=== PATIENT | male | born 1955 | race Caucasian/White ===

== ENCOUNTER 2016-05-15 22:30 | Inpatient (IN) | payer OTHER ==
[~2016-05-15] VITALS: Ht 188 cm; Wt 108.9 kg
--- NOTE | ~2016-05-15 | EKG ---
[address] [employer] [place] [address] ELECTROCARDIOGRAM REPORT Name: MARIANELA CASTANEDA Shelby Room #: 306-P ADM IN M.R.#: [id number] Admission: 05/16/16 Attend Phys: Kofi Aden Discharge: Date of : 55 Report #: [id number] THIS REPORT FOR: //name// [facility] Test Date: 2016-05-16 Test Time: 14:58:54 Pat Name: MARIANELA CASTANEDA Department: Room: 306 P Gender: M Geriatric Nurse: Ayanna SMART : 1955 Requested By: Kofi Aden Order Number: [id number] MD: Carlo Bae Measurements Intervals [place] Rate: 117 P: 62 NH: 140 QRS: 49 QRSD: 105 T: 56 QT: 325 QTc: 454 Interpretive Statements Sinus tachycardia Abnormal R-wave progression, early transition No previous ECG available for comparison Electronically Signed On 05-17-2016 7:48:50 CDT by Carlo Bae [email or web address] <ELECTRONICALLY SIGNED> By: Carlo Bae MD, LOCATED WITHIN [facility] 05/17/16 0748 1458 1458 Carlo Bae MD, FACC /EPI
[2016-05-15 22:30] VITALS: BP 139/52
[~2016-05-15 22:30] MED LIST: ACETAMINOP160 MG/12; ACETAMINOP160 MG/51 PER TUBE; AFLURIA 2045 MCG/0.4; ATIVAN0.5 MG PER TUBE; BACTRIM DS TAB1 EACH PER TUBE; BACTRIM DS TAB1 EACH PO; BACTROBAN22 GM TP; BISACODYL SUPP10 MG RECTAL; CIPROFLOXACIN500 M1 PO; COMBIVENT INH; CYCLOBENZAPRINE10 MG PER TUBE; DIFLUCAN100 MG PER TUBE; DILANTIN100 MG PO; DOCUSATE PER TUBE; DOCUSATE SODIUM PER TUBE; DOXYCYCLINE 10100 MG PO; DUONEB 2.5-0.5 M3 ML INH; FENTANYL PA50 MCG/HR; GABAPENTIN PER TUBE; GABAPENTIN250 MG/5 M PER TUBE; GABPENTIN PER TUBE; HYDROCODON-ACE1 EAC7 PER TUBE; HYDROCODON-ACE1 EACH PER TUBE; HYDROCODONE-AP1 EAC6 PER TUBE; JEVITY1000 M1; JEVITY1000 M1 PER TUBE; LANSOPRAZOLE30 M1 PER TUBE; LORTAB 5 MG/5001 TA1 PER TUBE; MEROPENEM500 MG IV; METOCLOPRAM5 MG/5 ML PER TUBE; METOCLOPRAMIDE 55 M1 GT; NYSTATIN1 EA10; NYSTATIN1 EAC9 TOP; OMEPRAZOLE20 M2 PER TUBE; PHENYTOIN125 MG/52 PER TUBE; PNEUMOVAX25 MCG/0.5; POTASSIUM CHL PER TUBE; POTASSIUM CHLORIDE PER TUBE; POTASSIUM20 PER TUBE; PREVACID 15 MG15 M4 PER TUBE; PREVACID 30MG C30 M1 PER TUBE; PRILOSEC10 MG PER TUBE; PROBIOTIC1 EAC1 PO; REGLAN 5 MG TAB5 MG PER TUBE; SODIUM CHLORID100 M4 IV; SULFAMETHOXAZO1 EAC1 PER TUBE; SULFAMETHOXAZOLE PER TUBE; TRIMETHOPRIM PER TUBE; TYLENOL SUPP RECTAL; ZANTAC 150MG T150 MG PO
[2016-05-15 23:51] LABS: URINE BILIRUBIN NEGATIVE (Negative); URINE BLOOD 3+ (Negative); URINE COLOR YELLOW; URINE GLUCOSE-RANDOM* NEGATIVE (Negative); URINE KETONES NEGATIVE (Negative); URINE LEUKOCYTES-REFLEX 3+ (Negative); URINE SPECIFIC GRAVITY <= 1.005 (1.003-1.035)
[2016-05-16 00:11] LABS: CASTS None Seen /LPF (None Seen); SQUAMOUS None Seen /LPF (0-3)
[2016-05-16 00:12] LABS: URINE WBC-REFLEX 6-15 Few /HPF (0-5)
[2016-05-16 00:13] LABS: CRYSTALS None Seen /LPF (None Seen)
[2016-05-16 00:14] LABS: AMORPHOUS PHOSPHATES Many /LPF (None Seen)
[2016-05-16 00:21] LABS: SSA (PROTEIN CONFIRMATORY) 4+ (APPROX. >= 500) mg/dL (Negative)
[2016-05-16 00:27] LABS: URINE PROTEIN (DIPSTICK) 4+ (Negative)
[2016-05-16 01:21] LABS: ABSOLUTE NEUTROPHILS 10.5 thou/uL (1.4-8.2); BASOPHILS 0.2 % (0.0-2.0); EOSINOPHILS 1.1 % (0.0-3.0); HEMATOCRIT 42.9 % (42.0-52.0); HEMOGLOBIN 14.4 gm/dL (14.0-18.0); LYMPHOCYTES 10.7 % (24.0-44.0); MCH 27.8 pg (26.0-34.0); MCHC 33.5 g/dL (28.0-37.0); MCV 83.1 fL (80.0-100.0); MONOCYTES 6.1 % (1.0-8.0); PLATELET COUNT 195 thou/uL (150-400); POLYS 81.9 % (36.0-66.0); RBC 5.16 mil/uL (4.50-6.00); RDW 15.9 % (10.5-14.5); WBC 12.8 thou/uL (4.0-11.0)
[2016-05-16 01:29] LABS: MANUAL DIFF NO
[2016-05-16 01:32] LABS: CALCIUM 9.5 mg/dL (8.5-10.1); CREATININE 1.3 mg/dL (0.6-1.3); POTASSIUM 4.2 mmol/L (3.5-5.1)
[2016-05-16 03:20] VITALS: BP 99/58
[2016-05-16 04:15] VITALS: BP 99/83
[2016-05-16 08:15] VITALS: BP 127/101
[2016-05-16 15:05] VITALS: BP 138/106
[2016-05-16 22:10] VITALS: BP 139/122
[2016-05-17 04:00] VITALS: BP 124/105
[2016-05-17 06:06] LABS: ABSOLUTE NEUTROPHILS 5.1 thou/uL (1.4-8.2); BASOPHILS 0.3 % (0.0-2.0); EOSINOPHILS 2.1 % (0.0-3.0); HEMATOCRIT 35.5 % (42.0-52.0); LYMPHOCYTES 21.5 % (24.0-44.0); MCH 28.1 pg (26.0-34.0); MCHC 32.2 g/dL (28.0-37.0); MCV 87.2 fL (80.0-100.0); MONOCYTES 11.3 % (1.0-8.0); PLATELET COUNT 135 thou/uL (150-400); POLYS 64.8 % (36.0-66.0); RBC 4.07 mil/uL (4.50-6.00); RDW 16.2 % (10.5-14.5); WBC 7.9 thou/uL (4.0-11.0)
[2016-05-17 06:08] LABS: HEMOGLOBIN 11.4 gm/dL (14.0-18.0); MANUAL DIFF NO
[2016-05-17 06:36] LABS: ALBUMIN 2.9 g/dL (3.4-5.0); CALCIUM 8.7 mg/dL (8.5-10.1); CREATININE 1.1 mg/dL (0.6-1.3); MAGNESIUM 1.9 mg/dL (1.8-2.4); POTASSIUM 4.9 mmol/L (3.5-5.1); TOTAL BILIRUBIN 0.7 mg/dL (<0.1-1.0); TOTAL PROTEIN 6.3 g/dL (6.4-8.2)
[2016-05-17] MEDS ORDERED: LEVAQUIN 500 M500 M2 PER TUBE (09:40)
[2016-05-17] MEDS ORDERED: ZYPREXA 5 MG TAB5 M1 PER TUBE (09:41)
[2016-05-17 12:25] VITALS: BP 121/52
[2016-05-18] MEDS ORDERED: ATIVAN1 MG PO (15:17)
[2016-05-18] MEDS ORDERED: NEURONTIN250 MG/5 M PER TUBE (15:19)
[2016-05-18] MEDS ORDERED: KEPPRA 500 MG500 M1 PER TUBE (15:20)
[2016-05-18] MEDS ORDERED: OLANZAPINE5 MG PER TUBE (15:21)
== END 2016-05-17 14:31 | DRG 393 ==
LOC: ER 22:30 → 3N 05-16 02:44 → EROBS 05-16 02:44 → 3N 05-16 03:20
PROVIDERS: Emergency Medicine; Nurse Practitioner
PROC: 0D20XUZ Change Feeding Device in Upper Intestinal Tract, External Approach (ICD-10-PCS; principal; 2016-05-16)
DX: K94.23 Gastrostomy malfunction (principal); G82.50 Quadriplegia, unspecified; G93.40 Encephalopathy, unspecified; A41.9 Sepsis, unspecified organism; N39.0 Urinary tract infection, site not specified; K21.9 Gastro-esophageal reflux disease without esophagitis; G40.909 Epilepsy, unspecified, not intractable, without status epilepticus; R45.1 Restlessness and agitation; Z87.01 Personal history of pneumonia (recurrent); Z90.49 Acquired absence of other specified parts of digestive tract; Z88.0 Allergy status to penicillin; Z88.1 Allergy status to other antibiotic agents; Z87.442 Personal history of urinary calculi; Z88.6 Allergy status to analgesic agent; Z91.041 Radiographic dye allergy status
CPT/HCPCS: 10096

== ENCOUNTER 2016-05-18 14:27 | Inpatient (IN) | payer OTHER ==
[~2016-05-18] VITALS: Ht 188 cm; Wt 85.9 kg
--- NOTE | ~2016-05-18 | HC ---
[facility] [place] [address] CONSULTATION Name: MARIANELA CASTANEDA Shelby Room #: 434-P ADM IN M.R.#: [id number] Admission: 05/18/16 Attend Phys: Grover Lopes MD Discharge: Date of : 55 Report #: [id number] THIS REPORT FOR: //name// CC: Grover Lopes MD Patient , Yair Read MD DATE OF SERVICE: 05/18/2016 Patient of Yair Read M.D. and Grover Lopes M.D. CHIEF COMPLAINT AND HISTORY OF PRESENT ILLNESS: This is a very pleasant 60-year-old white male, who is well-known to me from previous evaluation at [facility] in the past. He presents from [facility] where he resides with a history of coffee-ground emesis . The patient apparently pulled out his PEG tube on 05/15 and came to the Emergency Room at [facility] to have replaced. It was successfully replaced and he returned back to [facility]. At this time, he has had 2 episodes coffee-ground emesis. There is no melena or hematochezia. His hemoglobin at this time is 12.6. He is being admitted for observation, because of the coffee-ground emesis. PAST MEDICAL HISTORY: Significant for antral ulcers in 03/2014. He also is quadriplegic. He is aphasic. He has history of seizures, history of peptic ulcer disease as above, esophagitis, encephalopathy, anemia, aspiration pneumonia, and neurogenic bladder. He has a staghorn calculus. PAST SURGICAL HISTORY: Significant for PEG tube placement, suprapubic catheter placement and cholecystectomy. ALLERGIES: PENICILLIN, IODINE, CODEINE, VANCOMYCIN and CEPHALOSPORINS. CURRENT MEDICATIONS: Include acetaminophen, Neurontin, hydrocodone, Keppra, levofloxacin, lorazepam, Zyprexa, docusate, gabapentin liquid. SOCIAL HISTORY: Does not smoke, does not drink alcohol. Resides at [facility]. FAMILY HISTORY AND REVIEW OF SYSTEMS: Cannot be obtained from the patient, as he is nonverbal and I do not think, he really understands everything that I am asking him. He does not seem to respond appropriately to questions. PHYSICAL EXAMINATION: GENERAL: Reveals a well-developed, well-nourished 60-year-old white male, who [address] [address] CONSULTATION Name: MARIANELA CASTANEDA Room #: 434-P [facility] IN [facility]#: [id number] Admission: 05/18/16 Attend Phys: Grover Lopes MD Discharge: Date of : 55 Report #: [id number] does not appear to be in any acute distress at the time of my examination. He is awake, he appears alert, but I am not sure if he is oriented or if he is capable of comprehending my conversation with him. VITAL SIGNS: Blood pressure 119/64, temperature 99.1, pulse 86, respirations are 12. HEENT: He is normocephalic and atraumatic and anicteric. HEART: Rate and rhythm are regular with a normal S1 and S2. LUNGS: Clear bilaterally. ABDOMEN: Soft. Bowel sounds are present in all 4 quadrants. There is no palpable organomegaly or mass. There is no tenderness, rebound or guarding. He does have a PEG in his left upper quadrant and it appears to be dry. There is some mild erythema around the bumper. EXTREMITIES: Warm and dry. I did not test him extensively, because he cannot follow instructions for neurological testing, but he appears to be grossly intact without any lateralizing signs for the most part. He seems to be able to move both of his upper extremities. SIGNIFICANT LABORATORY DATA: His BMP shows a chloride of 110, which is high and BUN of 25. His glucose is 122. Liver enzymes are normal except for the alkaline phosphatase, which is slightly elevated at 128, bilirubin is normal, albumin is 2.7. INR is 1.0. CBC showed a white count 10.9, hemoglobin 12.6, hematocrit 38.3, MCV, MCH, MCHC are all normal. RDW 15.7, platelet count 149,000. His MRSA is positive. Urinalysis shows 4+ protein. Urobilinogen 2.0 and 3+ leukocytes, but his nitrites are negative. IMPRESSION: 1. Coffee-ground emesis. PEG tube replaced a few days ago. The patient was transferred here from [facility] for coffee-ground emesis and does not remember vomiting any coffee-ground, although I am not certain, he is a very good historian. He denied seeing any brown-colored emesis. He has been admitted several times in the past with coffee-ground emesis and he has had history of gastric ulcer in 03/2014. 2. History of seizures. 3. Quadriplegic. 4. Aphasic. 5. Neurogenic bladder. 6. History of esophagitis. 7. Encephalopathic. 8. History of anemia. 9. History of staghorn calculus. RECOMMENDATIONS: My recommendations are to start him on proton pump inhibitors, as you have done. We will keep him n.p.o. for now. Monitor his H and H every 8 hours x3. I do not have any particular plans to proceed with endoscopy unless hemoglobin [facility] [address] [place] [address] CONSULTATION Name: MARIANELA CASTANEDA Room #: 434-P ADM IN M.R.#: [id number] Admission: 05/18/16 Attend Phys: Grover Lopes MD Discharge: Date of : 55 Report #: [id number] dropped precipitously with obvious GI blood loss. Thank you very much once again for allowing me to participate in his care. <ELECTRONICALLY SIGNED> By: Sandra Bahena DO 05/19/16 0959 2326 0556 Sandra Bahena DO /nt
--- NOTE | ~2016-05-18 | EKG ---
[address] [address] ELECTROCARDIOGRAM REPORT Name: MARIANELA CASTANEDA Shelby Room #: 434-P ADM IN M.R.#: [id number] Admission: 05/18/16 Attend Phys: Grover Lopes MD Discharge: Date of : 55 Report #: [id number] THIS REPORT FOR: //name// 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 : 1955 Requested By: Luis Alfredo Joya Order Number: [id number] MD: Carlo Bae Measurements Intervals [place] Rate: 78 P: 81 SC: 139 QRS: 47 QRSD: 79 T: 58 QT: 363 QTc: 414 Interpretive Statements Sinus rhythm Abnormal R-wave progression, early transition Compared to ECG 05/16/2016 14:58:54 Sinus tachycardia no longer present Electronically Signed On 05-19-2016 7:23:22 CDT by Carlo Bae [email or web address] <ELECTRONICALLY SIGNED> By: Carlo Bae MD, [facility] 05/19/16 07 49 49 Carlo Bae MD, [facility] /EPI
--- NOTE | ~2016-05-18 | HC ---
[facility] [place] [address] CONSULTATION Name: MARIANELA CASTANEDA Shebly Room #: 434-P [facility] IN .R.#: [id number] Admission: 05/18/16 Attend Phys: Grover Lopes MD Discharge: 05/20/16 Date of : 55 Report #: [id number] THIS REPORT FOR: //name// CC: [facility] REASON FOR CONSULTATION: I was asked to evaluate the patient concerning ____ cystitis and multiple drug allergies. HISTORY OF PRESENT ILLNESS: The patient was a 60-year-old assisted resident, who had recently undergone a PEG tube placement for nutritional support. Since that he has had several episodes of coffee ground emesis. He has been in and out of the hospital over last 2 weeks. Dismissed on 05/20 only to return on 05/21 with similar symptoms. The patient is unable to give any details of his history. Past history notes antral ulcers diagnosed in 2015. He is quadriplegic and aphasic with a history of seizures, aspiration pneumonia, neurogenic bladder with history of staghorn calculus and suprapubic catheter. On presentation, he has been afebrile. His white count initially was 17,000 down to 10,000. His hemoglobin initially 14 down to 12.4 today, which is more in line with how he has been over the last week. There has been no fever, chills or sweats. No cough or sputum production. No diarrhea. Again, patient is unable to communicate. ALLERGIES: Multiple including PENICILLIN, CEPHALOSPORINS. He has VANCOMYCIN. Also allergic to IODINE AND CODEINE. MEDICATIONS: As noted on his MAR which were reviewed. He did receive a dose of Zyvox and aztreonam in the Emergency Room. PAST MEDICAL HISTORY, FAMILY HISTORY, AND SOCIAL HISTORY: Unchanged from his history and physical, which was reviewed in detail. REVIEW OF SYSTEMS: The patient unable to give any details. Now does have a right upper extremity midline catheter. Skin without decubiti. Respiratory status remained stable. No change in his mental status by report. PHYSICAL EXAMINATION: VITAL SIGNS: Afebrile, hemodynamically stable. He just had an echocardiogram, which showed no evidence of vegetation on his heart valves. HEENT: Unremarkable. NECK: Supple. LUNGS: Clear. HEART: Regular, without murmur. ABDOMEN: Soft, nontender, no hepatosplenomegaly or mass. His PICC site was unremarkable. Suprapubic catheter was unremarkable. SKIN: Had no rashes or decubiti. [address] [address] CONSULTATION Name: MARIANELA CASTANEDA Room #: 434-P [facility] IN ..#: [id number] Admission: 05/18/16 Attend Phys: Grover Lopes MD Discharge: 05/20/16 Date of : 55 Report #: [id number] LABORATORY STUDIES: Chest x-ray showed elevated hemidiaphragm with basilar atelectasis. X-ray of his abdomen showed nonspecific changes. Sodium 142, potassium 3.5, bicarbonate 22, creatinine 1.2, hemoglobin 12.4, white count 10.3, platelet count 177,000. Urinalysis, many wbc's, moderate rbc's, few bacteria. Urine sample was from 05/22. It is noted that urinalysis on 05/15 showed few wbc's, moderate rbc's and many bacteria. Urine culture from 05/15 showed MRSA and Proteus, which he has had in the past. 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 This organism was sensitive to Unasyn, aztreonam, ceftriaxone, Zosyn. MRSA was sensitive to vancomycin, tetracycline, rifampin, gentamicin, daptomycin, Zyvox. IMPRESSION: I suspected the main cause of presentation was due to the hematemesis. The urinary tract with an indwelling suprapubic catheter still is most likely colonized with these organisms. I do not get the sense that we are dealing with uncontrolled infection at this time. The last CT scan of his abdomen and pelvis did show nonobstructing nephrolithiasis and some calcifications within the right bladder wall. This was from 2014. Recommend observation off antibiotics. I will see how he does in the next 24-48 hours. <ELECTRONICALLY SIGNED> By: Barber Porter MD 05/23/16 1654 1221 [id number] Barber Porter MD /nt
[~2016-05-18 14:27] MED LIST changes: +LEVAQUIN 500 M500 M2 PER TUBE; +ZYPREXA 5 MG TAB5 M1 PER TUBE
[2016-05-18 14:28] VITALS: BP 119/64
[2016-05-18 14:51] LABS: HEMATOCRIT 38.3 % (42.0-52.0); HEMOGLOBIN 12.6 gm/dL (14.0-18.0); MCHC 32.9 g/dL (28.0-37.0); MCV 85.2 fL (80.0-100.0); PLATELET COUNT 149 thou/uL (150-400); RBC 4.49 mil/uL (4.50-6.00); RDW 15.7 % (10.5-14.5); WBC 10.9 thou/uL (4.0-11.0)
[2016-05-18 14:54] LABS: MANUAL DIFF YES
[2016-05-18 14:59] LABS: CALCIUM 8.8 mg/dL (8.5-10.1); POTASSIUM 4.2 mmol/L (3.5-5.1)
[2016-05-18 15:04] LABS: ALBUMIN 2.7 g/dL (3.4-5.0); TOTAL BILIRUBIN 0.5 mg/dL (<0.1-1.0); TOTAL PROTEIN 6.6 g/dL (6.4-8.2)
[2016-05-18 15:05] LABS: APTT 18.8 Seconds (24.5-32.8); PROTIME 10.7 Seconds (9.3-11.4)
[2016-05-18 15:11] LABS: ABSOLUTE NEUTROPHILS 9.6 thou/uL (1.4-8.2); PLATELET ESTIMATE NORMAL; TOTAL CELL COUNT 100
[2016-05-18] MEDS ORDERED: ATIVAN1 MG PO (15:17)
[2016-05-18] MEDS ORDERED: NEURONTIN250 MG/5 M PER TUBE (15:19)
[2016-05-18] MEDS ORDERED: KEPPRA 500 MG500 M1 PER TUBE (15:20)
[2016-05-18] MEDS ORDERED: OLANZAPINE5 MG PER TUBE (15:21)
[2016-05-18 16:55] VITALS: BP 108/60
[2016-05-18 17:00] VITALS: BP 128/74
[2016-05-18 19:30] VITALS: BP 108/64
[2016-05-18 20:03] LABS: HEMATOCRIT 37.1 % (42.0-52.0)
[2016-05-19] VITALS: BP 124/59
[2016-05-19 03:30] VITALS: BP 125/63
[2016-05-19 06:06] LABS: ALBUMIN 2.9 g/dL (3.4-5.0); CALCIUM 8.8 mg/dL (8.5-10.1); MAGNESIUM 1.8 mg/dL (1.8-2.4); TOTAL BILIRUBIN 1.1 mg/dL (<0.1-1.0); TOTAL PROTEIN 6.3 g/dL (6.4-8.2)
[2016-05-19 08:18] VITALS: BP 104/70
[2016-05-19 11:37] VITALS: BP 111/56
[2016-05-19 15:19] LABS: HEMATOCRIT 37.8 % (42.0-52.0); HEMOGLOBIN 12.4 gm/dL (14.0-18.0); MCHC 32.7 g/dL (28.0-37.0); MCV 85.5 fL (80.0-100.0); RBC 4.42 mil/uL (4.50-6.00); RDW 15.9 % (10.5-14.5); WBC 6.3 thou/uL (4.0-11.0)
[2016-05-19 16:38] VITALS: BP 137/80
[2016-05-19 19:21] VITALS: BP 117/84
[2016-05-20 05:10] VITALS: BP 105/61
[2016-05-20 05:36] LABS: ABSOLUTE NEUTROPHILS 4.9 thou/uL (1.4-8.2); BASOPHILS 0.3 % (0.0-2.0); EOSINOPHILS 2.7 % (0.0-3.0); HEMATOCRIT 38.6 % (42.0-52.0); HEMOGLOBIN 12.6 gm/dL (14.0-18.0); LYMPHOCYTES 24.9 % (24.0-44.0); MCHC 32.7 g/dL (28.0-37.0); MCV 85.7 fL (80.0-100.0); MONOCYTES 6.3 % (1.0-8.0); PLATELET COUNT 168 thou/uL (150-400); POLYS 65.8 % (36.0-66.0); WBC 7.5 thou/uL (4.0-11.0)
[2016-05-20 05:43] LABS: MANUAL DIFF NO
[2016-05-20 07:15] VITALS: BP 95/57
[2016-05-20 11:15] VITALS: BP 116/53
[2016-05-20] MEDS ORDERED: PROTONIX40 M4 PO (14:44)
== END 2016-05-20 18:19 | DRG 377 ==
LOC: ER 14:27 → EROBS 15:00 → 4S 15:00 → EROBS 16:55 → 4S 17:01
PROVIDERS: Emergency Medicine; Internal Medicine Endocrinology, Diabetes & Metabolism; Internal Medicine Gastroenterology; Nurse Practitioner
DX: K92.2 Gastrointestinal hemorrhage, unspecified (principal); G82.50 Quadriplegia, unspecified; G93.40 Encephalopathy, unspecified; G61.0 Guillain-Barre syndrome; E44.0 Moderate protein-calorie malnutrition; R11.10 Vomiting, unspecified; Z96.0 Presence of urogenital implants; N31.9 Neuromuscular dysfunction of bladder, unspecified; D50.9 Iron deficiency anemia, unspecified; G40.909 Epilepsy, unspecified, not intractable, without status epilepticus; Z66 Do not resuscitate; R45.1 Restlessness and agitation; Z68.24 Body mass index [BMI] 24.0-24.9, adult; Z87.442 Personal history of urinary calculi; Z87.01 Personal history of pneumonia (recurrent); Z90.49 Acquired absence of other specified parts of digestive tract; Z88.0 Allergy status to penicillin; Z88.7 Allergy status to serum and vaccine; Z88.1 Allergy status to other antibiotic agents; Z88.6 Allergy status to analgesic agent; Z91.041 Radiographic dye allergy status; Z87.11 Personal history of peptic ulcer disease; Z93.1 Gastrostomy status
CPT/HCPCS: 10100

== ENCOUNTER 2016-05-21 13:08 | Inpatient (IN) | payer OTHER ==
[~2016-05-21] VITALS: Ht 175.3 cm; Wt 90.7 kg
--- NOTE | ~2016-05-21 | 2DMMODE ---
[facility] [place] [address] 2 D/M-MODE ECHOCARDIOGRAM Name: MARIANELA CASTANEDA Shelby Room #: 430-P [facility] IN [facility]#: [id number] Admission: 05/21/16 Attend Phys: Elkin Navas, Discharge: Date of : 55 Date of Service: 05/22/16 1120 Report #: [id number] THIS REPORT FOR: //name// APPROVED REPORT EXAM: Comprehensive 2D, Doppler, and color-flow Echocardiogram Patient Location: Bedside Blood Pressure: 132/70 mmHg HR: 90 bpm Other Information Study Quality: Fair Technically limited study due to body habitus. Indications Sepsis, R^O endocarditis. 2D Dimensions LVOT Diam: 21.28 (18-24mm) Aortic Valve AoV Peak Jere.: 1.04 m/s AO Peak Gr.: 4.35 mmHg LV Max P.90 mmHg LV Max: 0.99 m/s Mitral Valve MV PHT: 105.69 ms MV E Max Jere.: 0.58 m/s E/A Ratio: 0.7 MV A Jere.: 0.87 m/s MV Decel. Time: 364.45 ms Pulmonary Valve PV Peak Jere.: 0.94 m/s PV Peak Gr.: 3.53 mmHg Left Ventricle The left ventricle is normal size. There is normal LV segmental wall motion. There is normal left ventricular wall thickness. The left ventricular systolic function is grossly normal. LVEF is 60-65%. Grade I - abnormal relaxation pattern. Right Ventricle The right ventricle is normal size. The right ventricular systolic [facility] [address] [place] [address] 2 D/M-MODE ECHOCARDIOGRAM Name: MARIANELA CASTANEDA Room #: 430-P [facility] IN [facility]#: [id number] Admission: 05/21/16 Attend Phys: Elkin Navas, Discharge: Date of : 55 Date of Service: 05/22/16 1120 Report #: [id number] function is normal. Atria The left atrium size is normal. The right atrium size is normal. Aortic Valve The aortic valve is normal in structure. No aortic regurgitation is present. There is no aortic valvular stenosis. Mitral Valve The mitral valve is normal in structure. There is no mitral valve regurgitation noted. Tricuspid Valve The tricuspid valve is normal in structure. There is no tricuspid valve regurgitation noted. Pulmonic Valve The pulmonary valve is normal in structure. There is no pulmonic valvular regurgitation. Great Vessels The aortic root is normal in size. IVC is not well visualized. Pericardium There is no pericardial effusion. <Conclusion> Technically difficult study. The left ventricle is normal size. The left ventricular systolic function is grossly normal. The right ventricle is normal size. The left atrium size is normal. There is no aortic valvular stenosis. There is no mitral valve regurgitation noted. There is no pericardial effusion. <ELECTRONICALLY SIGNED> By: Oracio Johnson MD 05/22/16 1120 19 19 Oracio Johnson MD /INF
--- NOTE | ~2016-05-21 | EKG ---
[address] [address] ELECTROCARDIOGRAM REPORT Name: CASTANEDAMARIANELA Room #: 430-P ADM IN M.R.#: [id number] Admission: 05/21/16 Attend Phys: Elkin Navas MD Discharge: Date of : 55 Report #: [id number] THIS REPORT FOR: //name// [facility] Test Date: 2016-05-22 Test Time: 03:52:21 Pat Name: MARIANELA CASTANEDA Department: Room: 430 P Gender: M Typing Office Worker: LION : 1955 Requested By: Desi Jonas Order Number: [id number] MD: Ger Stanley Measurements Intervals [place] Rate: 109 P: 75 [place]: 141 QRS: 37 QRSD: 77 T: 54 QT: 325 QTc: 438 Interpretive Statements Sinus tachycardia Atrial premature complex Abnormal R-wave progression, early transition Baseline wander in lead(s) I,II,aVR Compared to ECG 05/18/2016 14:50:14 Atrial premature complex(es) now present Sinus rhythm no longer present Electronically Signed On 05-26-2016 12:26:11 CDT by Ger Stanley [email or web address] <ELECTRONICALLY SIGNED> By: Ger Stanley MD 05/26/16 1226 1 1 Ger Stanley MD /EPI
[~2016-05-21 13:08] MED LIST changes: +ATIVAN1 MG PO; +KEPPRA 500 MG500 M1 PER TUBE; +NEURONTIN250 MG/5 M PER TUBE; +OLANZAPINE5 MG PER TUBE; +PROTONIX40 M4 PO
[2016-05-21 13:09] VITALS: BP 150/83
[2016-05-21 13:54] LABS: HEMATOCRIT 42.2 % (42.0-52.0); MANUAL DIFF YES; MCHC 33.1 g/dL (28.0-37.0); MCV 84.8 fL (80.0-100.0); PLATELET COUNT 195 thou/uL (150-400); RBC 4.98 mil/uL (4.50-6.00); WBC 17.8 thou/uL (4.0-11.0)
[2016-05-21 14:06] LABS: CALCIUM 9.3 mg/dL (8.5-10.1); POTASSIUM 3.6 mmol/L (3.5-5.1)
[2016-05-21 14:07] LABS: ALBUMIN 3.3 g/dL (3.4-5.0); DIRECT BILIRUBIN 0.3 mg/dL (<0.1-0.3); TOTAL PROTEIN 7.8 g/dL (6.4-8.2)
[2016-05-21 14:37] LABS: ABSOLUTE NEUTROPHILS 16.6 thou/uL (1.4-8.2); ANISOCYTOSIS 1+; TOTAL CELL COUNT 100
[2016-05-21 20:00] VITALS: BP 125/71
[2016-05-22 01:35] VITALS: BP 108/70
[2016-05-22 04:00] VITALS: BP 92/60
[2016-05-22 04:34] LABS: HEMATOCRIT 37.4 % (42.0-52.0); HEMOGLOBIN 12.4 gm/dL (14.0-18.0); MCH 28.1 pg (26.0-34.0); MCHC 33.2 g/dL (28.0-37.0); MCV 84.8 fL (80.0-100.0); RBC 4.41 mil/uL (4.50-6.00); RDW 16.2 % (10.5-14.5); WBC 10.3 thou/uL (4.0-11.0)
[2016-05-22 04:46] LABS: CREATININE 1.2 mg/dL (0.6-1.3); POTASSIUM 3.5 mmol/L (3.5-5.1)
[2016-05-22 08:19] LABS: URINE BILIRUBIN NEGATIVE (Negative); URINE BLOOD 3+ (Negative); URINE COLOR YELLOW; URINE GLUCOSE-RANDOM* NEGATIVE (Negative); URINE KETONES NEGATIVE (Negative); URINE NITRITE NEGATIVE (Negative); URINE PROTEIN (DIPSTICK) 2+ (Negative); URINE SPECIFIC GRAVITY 1.015 (1.003-1.035)
[2016-05-22 08:52] LABS: BACTERIA 1-9 Few /HPF (None Seen); CASTS None Seen /LPF (None Seen); CRYSTALS None Seen /LPF (None Seen); SQUAMOUS 0-3 Few /LPF (0-3); URINE WBC >25 Many /HPF (0-5); WBC CLUMPS Packed (None Seen)
[2016-05-22 09:48] VITALS: BP 132/70
[2016-05-22 16:55] VITALS: BP 140/72
[2016-05-22 20:09] VITALS: BP 136/71
[2016-05-23 04:00] VITALS: BP 106/56
[2016-05-23 05:49] LABS: MCH 27.9 pg (26.0-34.0); MCHC 32.5 g/dL (28.0-37.0); MCV 85.9 fL (80.0-100.0); RBC 4.3 mil/uL (4.50-6.00); RDW 15.9 % (10.5-14.5); WBC 5.3 thou/uL (4.0-11.0)
[2016-05-23 06:04] LABS: CALCIUM 8.5 mg/dL (8.5-10.1); CREATININE 1.1 mg/dL (0.6-1.3); POTASSIUM 3.4 mmol/L (3.5-5.1)
[2016-05-23 08:19] VITALS: BP 132/78
[2016-05-23 11:30] VITALS: BP 120/76
[2016-05-23 15:00] VITALS: BP 120/72
[2016-05-23 21:00] VITALS: BP 109/68
[2016-05-24 04:30] VITALS: BP 104/72
[2016-05-24 07:49] LABS: BASOPHILS 0.4 % (0.0-2.0); EOSINOPHILS 3.5 % (0.0-3.0); HEMATOCRIT 34.2 % (42.0-52.0); HEMOGLOBIN 11.3 gm/dL (14.0-18.0); LYMPHOCYTES 31.3 % (24.0-44.0); MCH 28.4 pg (26.0-34.0); MCHC 33.1 g/dL (28.0-37.0); MONOCYTES 7.2 % (1.0-8.0); PLATELET COUNT 160 thou/uL (150-400); POLYS 57.6 % (36.0-66.0); RBC 3.98 mil/uL (4.50-6.00); WBC 5.2 thou/uL (4.0-11.0)
[2016-05-24 07:52] VITALS: BP 94/61
[2016-05-24 07:55] LABS: CALCIUM 8.8 mg/dL (8.5-10.1); POTASSIUM 3.7 mmol/L (3.5-5.1)
[2016-05-24 07:56] LABS: MANUAL DIFF NO
[2016-05-24 16:44] VITALS: BP 111/71
[2016-05-24 20:00] VITALS: BP 116/71
[2016-05-25 04:38] VITALS: BP 129/79
[2016-05-25 05:33] LABS: HEMATOCRIT 38.5 % (42.0-52.0); HEMOGLOBIN 12.4 gm/dL (14.0-18.0); MCH 27.5 pg (26.0-34.0); MCHC 32.3 g/dL (28.0-37.0); MCV 85.2 fL (80.0-100.0); RBC 4.52 mil/uL (4.50-6.00); RDW 16.3 % (10.5-14.5); WBC 6.7 thou/uL (4.0-11.0)
[2016-05-25 05:42] LABS: CREATININE 0.9 mg/dL (0.6-1.3); POTASSIUM 4.1 mmol/L (3.5-5.1)
[2016-05-25 14:47] VITALS: BP 100/67
[2016-05-25 20:00] VITALS: BP 128/59
[2016-05-26 04:07] VITALS: BP 116/62
[2016-05-26 06:25] LABS: HEMATOCRIT 35.7 % (42.0-52.0); HEMOGLOBIN 11.7 gm/dL (14.0-18.0); MCH 27.9 pg (26.0-34.0); MCHC 32.9 g/dL (28.0-37.0); MCV 84.9 fL (80.0-100.0); RBC 4.2 mil/uL (4.50-6.00); WBC 6.9 thou/uL (4.0-11.0)
[2016-05-26 07:30] VITALS: BP 151/107
[2016-05-26 08:46] LABS: CALCIUM 8.9 mg/dL (8.5-10.1); CREATININE 0.9 mg/dL (0.6-1.3); POTASSIUM 4.2 mmol/L (3.5-5.1)
[2016-05-26 12:19] VITALS: BP 102/55
[2016-05-26 14:37] VITALS: BP 120/71
== END 2016-05-26 19:09 | DRG 871 ==
LOC: ER 13:08 → 4E 15:22 → EROBS 15:22 → 4E 16:44
PROVIDERS: Emergency Medicine; Family Medicine; Internal Medicine
PROC: 02HV33Z Insertion of Infusion Device into Superior Vena Cava, Percutaneous Approach (ICD-10-PCS; principal; 2016-05-22)
PROC: B548ZZA Ultrasonography of Superior Vena Cava, Guidance (ICD-10-PCS; principal; 2016-05-22)
DX: A41.9 Sepsis, unspecified organism (principal); G93.40 Encephalopathy, unspecified; N39.0 Urinary tract infection, site not specified; G40.909 Epilepsy, unspecified, not intractable, without status epilepticus; I10 Essential (primary) hypertension; B95.62 Methicillin resistant Staphylococcus aureus infection as the cause of diseases classified elsewhere; D50.9 Iron deficiency anemia, unspecified; B96.4 Proteus (mirabilis) (morganii) as the cause of diseases classified elsewhere; N31.9 Neuromuscular dysfunction of bladder, unspecified; Z87.442 Personal history of urinary calculi; Z90.49 Acquired absence of other specified parts of digestive tract; Z88.0 Allergy status to penicillin; Z88.7 Allergy status to serum and vaccine; Z88.6 Allergy status to analgesic agent; Z88.1 Allergy status to other antibiotic agents; Z91.041 Radiographic dye allergy status; Z87.01 Personal history of pneumonia (recurrent)
CPT/HCPCS: 10084; 27001; 50454

== ENCOUNTER 2016-12-05 12:05 | Emergency (ER) | payer OTHER ==
[~2016-12-05] VITALS: Ht 182.9 cm; Wt 81.7 kg
[2016-12-05 13:12] LABS: ABSOLUTE NEUTROPHILS 5.7 thou/uL (1.4-8.2); BASOPHILS 0.2 % (0.0-2.0); EOSINOPHILS 2.8 % (0.0-3.0); HEMOGLOBIN 14.4 gm/dL (14.0-18.0); MCH 27.6 pg (26.0-34.0); MCHC 33.4 g/dL (28.0-37.0); MCV 82.6 fL (80.0-100.0); MONOCYTES 7.6 % (1.0-8.0); PLATELET COUNT 230 thou/uL (150-400); POLYS 68.4 % (36.0-66.0); RBC 5.21 mil/uL (4.50-6.00); RDW 15.9 % (10.5-14.5); WBC 8.3 thou/uL (4.0-11.0)
[2016-12-05 13:13] LABS: MANUAL DIFF NO
[2016-12-05 13:21] LABS: CREATININE 1.1 mg/dL (0.7-1.3); POTASSIUM 3.8 mmol/L (3.5-5.1)
[2016-12-05 13:26] LABS: ALBUMIN 3.4 g/dL (3.4-5.0); TOTAL BILIRUBIN 0.7 mg/dL (<0.1-1.0); TOTAL PROTEIN 8.3 g/dL (6.4-8.2)
[2016-12-05 13:52] LABS: URINE BILIRUBIN NEGATIVE (Negative); URINE BLOOD 3+ (Negative); URINE COLOR YELLOW; URINE GLUCOSE-RANDOM* NEGATIVE (Negative); URINE KETONES NEGATIVE (Negative); URINE PROTEIN (DIPSTICK) 2+ (Negative); URINE SPECIFIC GRAVITY 1.015 (1.003-1.035)
[2016-12-05 14:04] LABS: CASTS None Seen /LPF (None Seen); SQUAMOUS None Seen /LPF (0-3); URINE LEUKOCYTES-REFLEX 3+ (Negative); URINE WBC-REFLEX >25 Many /HPF (0-5)
[2016-12-05 14:05] LABS: AMORPHOUS URATES Moderate /LPF (None Seen)
[2016-12-05 14:06] LABS: URINE RBC 3-10 Few /HPF (0-2)
[2016-12-05 14:17] LABS: SSA (PROTEIN CONFIRMATORY) 2+ (APPROX. 10-100) mg/dL (Negative)
[2016-12-05] MEDS ORDERED: DOCU LIQUI50 MG/5 ML PER TUBE (14:19)
[2016-12-05] MEDS ORDERED: KEPPRA 100100 MG/M1 PER TUBE (14:20)
[2016-12-05] MEDS ORDERED: ACETAMINOP160 MG/5 M PER TUBE (14:21)
[2016-12-05] MEDS ORDERED: JEVITY 1.5 CAL237 ML PER TUBE (14:23)
[2016-12-05] MEDS ORDERED: NORCO 5-325 TA1 EACH PER TUBE (14:24)
[2016-12-05] MEDS ORDERED: PRILOSEC10 MG PO (14:25)
[2016-12-05] MEDS ORDERED: ATIVAN0.5 MG PER TUBE (14:26)
[2016-12-05 15:25] VITALS: BP 136/66
== END 2016-12-05 15:24 ==
LOC: ER 12:05
PROVIDERS: Physician Assistant
DX: K94.23 Gastrostomy malfunction (principal); N39.0 Urinary tract infection, site not specified; I10 Essential (primary) hypertension; Z46.6 Encounter for fitting and adjustment of urinary device; Z86.69 Personal history of other diseases of the nervous system and sense organs; Z87.09 Personal history of other diseases of the respiratory system; Z87.442 Personal history of urinary calculi; Z98.890 Other specified postprocedural states; Z88.1 Allergy status to other antibiotic agents; Z88.0 Allergy status to penicillin; Z88.5 Allergy status to narcotic agent; Z88.7 Allergy status to serum and vaccine; Z88.8 Allergy status to other drugs, medicaments and biological substances

== ENCOUNTER 2017-04-16 20:33 | Emergency (ER) | payer OTHER ==
[~2017-04-16] VITALS: Ht 172.7 cm; Wt 70.3 kg
[~2017-04-16 20:33] MED LIST changes: +ACETAMINOP160 MG/5 M PER TUBE; +DOCU LIQUI50 MG/5 ML PER TUBE; +JEVITY 1.5 CAL237 ML PER TUBE; +KEPPRA 100100 MG/M1 PER TUBE; +NORCO 5-325 TA1 EACH PER TUBE; +PRILOSEC10 MG PO
[2017-04-16 23:46] VITALS: BP 138/72
== END 2017-04-16 23:49 | disposition home or self-care (01) ==
LOC: ER 20:33
DX: Z43.1 Encounter for attention to gastrostomy (principal); I10 Essential (primary) hypertension; Z90.49 Acquired absence of other specified parts of digestive tract; Z88.0 Allergy status to penicillin; Z88.5 Allergy status to narcotic agent; Z88.1 Allergy status to other antibiotic agents; Z91.041 Radiographic dye allergy status

== ENCOUNTER 2017-09-02 11:58 | Emergency (ER) | payer OTHER ==
[~2017-09-02] VITALS: Ht 180.3 cm; Wt 90.7 kg
[2017-09-02 12:23] LABS: URINE BILIRUBIN NEGATIVE (Negative); URINE BLOOD 2+ (Negative); URINE CLARITY CLEAR; URINE COLOR YELLOW; URINE GLUCOSE-RANDOM* NEGATIVE (Negative); URINE KETONES NEGATIVE (Negative); URINE PROTEIN (DIPSTICK) 2+ (Negative); URINE UROBILINOGEN 0.2 E.U./dl (0.2-1.0)
[2017-09-02 12:26] LABS: URINE LEUKOCYTES-REFLEX 2+ (Negative); URINE NITRITE-REFLEX POSITIVE (Negative)
[2017-09-02 12:40] LABS: CASTS None Seen /LPF (None Seen); CRYSTALS None Seen /LPF (None Seen); SQUAMOUS None Seen /LPF (0-3); URINE WBC-REFLEX >25 Many /HPF (0-5)
[2017-09-02 12:41] LABS: AMORPHOUS PHOSPHATES Many /LPF (None Seen); MUCUS >6 Heavy strn/LPF (None Seen); TRIPLE PHOSPHATE CRYSTALS 4-10 Moderate /LPF (None Seen); URINE RBC 3-10 Few /HPF (0-2)
[2017-09-02 12:56] LABS: ABSOLUTE NEUTROPHILS 9.7 thou/uL (1.4-8.2); BASOPHILS 0.3 % (0.0-2.0); EOSINOPHILS 0.6 % (0.0-3.0); HEMATOCRIT 44.5 % (42.0-52.0); HEMOGLOBIN 14.9 gm/dL (14.0-18.0); LYMPHOCYTES 9.3 % (24.0-44.0); MCH 29.7 pg (26.0-34.0); MCHC 33.6 g/dL (28.0-37.0); MCV 88.3 fL (80.0-100.0); MONOCYTES 3.9 % (1.0-8.0); PLATELET COUNT 241 thou/uL (150-400); POLYS 85.9 % (36.0-66.0); RBC 5.04 mil/uL (4.50-6.00); RDW 15.1 % (10.5-14.5); WBC 11.3 thou/uL (4.0-11.0)
[2017-09-02 13:04] LABS: CALCIUM 9.8 mg/dL (8.5-10.1); CREATININE 1.2 mg/dL (0.7-1.3); POTASSIUM 4.3 mmol/L (3.5-5.1)
[2017-09-02 16:30] LABS: BE(vivo) -6.4 mmol/L (-2 to +3); HCO3 16.3 mmol/L (22.0-26.0); PO2 86.2 mmHg (80.0-100.0); pH 7.416 (7.360-7.450); sO2 96.8 % (92.0-98.0)
[2017-09-02 18:51] VITALS: BP 140/94
== END 2017-09-02 18:53 | disposition home or self-care (01) ==
LOC: ER 11:58
PROVIDERS: Physician Assistant
DX: Z46.59 Encounter for fitting and adjustment of other gastrointestinal appliance and device (principal); I10 Essential (primary) hypertension; Z90.49 Acquired absence of other specified parts of digestive tract; Z88.1 Allergy status to other antibiotic agents; Z88.5 Allergy status to narcotic agent; Z88.7 Allergy status to serum and vaccine; Z91.041 Radiographic dye allergy status; Z88.0 Allergy status to penicillin

== ENCOUNTER 2017-09-02 22:24 | Emergency (ER) | payer OTHER ==
[~2017-09-02] VITALS: Ht 180.3 cm; Wt 90.7 kg
[2017-09-03 00:59] VITALS: BP 117/53
== END 2017-09-03 01:00 | disposition home or self-care (01) ==
LOC: ER 22:24
DX: K94.23 Gastrostomy malfunction (principal); I10 Essential (primary) hypertension; Z90.49 Acquired absence of other specified parts of digestive tract; Z88.1 Allergy status to other antibiotic agents; Z88.5 Allergy status to narcotic agent; Z88.7 Allergy status to serum and vaccine; Z91.041 Radiographic dye allergy status; Z88.0 Allergy status to penicillin

== ENCOUNTER 2017-09-03 09:45 | Emergency (ER) | payer OTHER ==
[~2017-09-03] VITALS: Ht 180.3 cm; Wt 90.7 kg
[2017-09-03 10:18] LABS: ABSOLUTE NEUTROPHILS 6.7 thou/uL (1.4-8.2); BASOPHILS 0.2 % (0.0-2.0); EOSINOPHILS 1.2 % (0.0-3.0); HEMATOCRIT 42.5 % (42.0-52.0); HEMOGLOBIN 14.3 gm/dL (14.0-18.0); LYMPHOCYTES 13.7 % (24.0-44.0); MCH 29.7 pg (26.0-34.0); MCHC 33.7 g/dL (28.0-37.0); MCV 87.9 fL (80.0-100.0); MONOCYTES 5.6 % (1.0-8.0); PLATELET COUNT 242 thou/uL (150-400); POLYS 79.3 % (36.0-66.0); RBC 4.83 mil/uL (4.50-6.00); RDW 15.3 % (10.5-14.5); WBC 8.5 thou/uL (4.0-11.0)
[2017-09-03 10:24] LABS: CREATININE 1.1 mg/dL (0.7-1.3)
[2017-09-03 10:30] LABS: ALBUMIN 3.8 g/dL (3.4-5.0); TOTAL BILIRUBIN 0.7 mg/dL (<0.1-1.0); TOTAL PROTEIN 8.5 g/dL (6.4-8.2)
[2017-09-03 12:45] LABS: URINE BILIRUBIN NEGATIVE (Negative); URINE BLOOD 3+ (Negative); URINE CLARITY CLOUDY; URINE COLOR YELLOW; URINE GLUCOSE-RANDOM* NEGATIVE (Negative); URINE KETONES NEGATIVE (Negative); URINE NITRITE-REFLEX NEGATIVE (Negative); URINE PROTEIN (DIPSTICK) 2+ (Negative); URINE SPECIFIC GRAVITY 1.015 (1.005-1.035)
[2017-09-03 12:49] LABS: URINE LEUKOCYTES-REFLEX 3+ (Negative)
[2017-09-03 13:06] LABS: CASTS None Seen /LPF (None Seen); CRYSTALS None Seen /LPF (None Seen); SQUAMOUS 0-3 Few /LPF (0-3); URINE RBC 3-10 Few /HPF (0-2)
[2017-09-03 13:59] VITALS: BP 147/84
== END 2017-09-03 14:07 ==
LOC: ER 09:45
PROVIDERS: Physician Assistant
DX: Z46.59 Encounter for fitting and adjustment of other gastrointestinal appliance and device (principal); R45.1 Restlessness and agitation; I10 Essential (primary) hypertension; Z90.49 Acquired absence of other specified parts of digestive tract; Z88.1 Allergy status to other antibiotic agents; Z88.5 Allergy status to narcotic agent; Z88.7 Allergy status to serum and vaccine; Z91.041 Radiographic dye allergy status; Z88.0 Allergy status to penicillin

== ENCOUNTER 2017-09-04 07:16 | Emergency (ER) | payer OTHER ==
[~2017-09-04] VITALS: Ht 180.3 cm; Wt 90.7 kg
[2017-09-04 07:17] VITALS: BP 107/64
== END 2017-09-04 07:29 ==
LOC: ER 07:16
DX: K94.23 Gastrostomy malfunction (principal); I10 Essential (primary) hypertension; Z90.49 Acquired absence of other specified parts of digestive tract; Z88.1 Allergy status to other antibiotic agents; Z88.5 Allergy status to narcotic agent; Z88.7 Allergy status to serum and vaccine; Z91.041 Radiographic dye allergy status; Z88.0 Allergy status to penicillin

== ENCOUNTER 2018-02-27 15:28 | Emergency (ER) | payer OTHER ==
[~2018-02-27] VITALS: Ht 182.9 cm; Wt 90.7 kg
[2018-02-27 15:53] VITALS: BP 120/67
== END 2018-02-27 15:53 ==
LOC: ER 15:28
DX: Z43.1 Encounter for attention to gastrostomy (principal); I10 Essential (primary) hypertension; Z90.49 Acquired absence of other specified parts of digestive tract; Z88.0 Allergy status to penicillin; Z88.5 Allergy status to narcotic agent; Z88.1 Allergy status to other antibiotic agents; Z91.041 Radiographic dye allergy status

== ENCOUNTER 2018-05-11 11:30 | Emergency (ER) | payer OTHER ==
[~2018-05-11] VITALS: Ht 172.7 cm; Wt 181.4 kg
[2018-05-11 13:21] VITALS: BP 132/84
== END 2018-05-11 13:22 ==
LOC: ER 11:30
DX: K94.23 Gastrostomy malfunction (principal); I10 Essential (primary) hypertension; Z88.1 Allergy status to other antibiotic agents; Z88.0 Allergy status to penicillin; Z91.041 Radiographic dye allergy status; Z88.7 Allergy status to serum and vaccine; Z88.5 Allergy status to narcotic agent; Z86.2 Personal history of diseases of the blood and blood-forming organs and certain disorders involving the immune mechanism; Z87.442 Personal history of urinary calculi

== ENCOUNTER 2018-08-27 16:51 | Emergency (ER) | payer OTHER ==
[~2018-08-27] VITALS: Ht 180.3 cm; Wt 127.0 kg
[2018-08-27 21:40] VITALS: BP 138/82
== END 2018-08-27 21:52 ==
LOC: ER 16:51
DX: Z43.1 Encounter for attention to gastrostomy (principal); I10 Essential (primary) hypertension; Z90.49 Acquired absence of other specified parts of digestive tract; Z88.0 Allergy status to penicillin; Z88.5 Allergy status to narcotic agent; Z88.7 Allergy status to serum and vaccine; Z91.041 Radiographic dye allergy status

== ENCOUNTER 2018-10-12 22:56 | Emergency (ER) | payer OTHER ==
[~2018-10-12] VITALS: Ht 170.2 cm; Wt 81.7 kg
[2018-10-13 01:15] VITALS: BP 105/61
== END 2018-10-13 01:16 | disposition home or self-care (01) ==
LOC: ER 22:56
DX: K94.23 Gastrostomy malfunction (principal); I10 Essential (primary) hypertension; Z88.1 Allergy status to other antibiotic agents; Z88.7 Allergy status to serum and vaccine; Z88.5 Allergy status to narcotic agent; Z91.041 Radiographic dye allergy status; Z88.0 Allergy status to penicillin; Z87.442 Personal history of urinary calculi; Z86.2 Personal history of diseases of the blood and blood-forming organs and certain disorders involving the immune mechanism; Y83.9 Surgical procedure, unspecified as the cause of abnormal reaction of the patient, or of later complication, without mention of misadventure at the time of the procedure

== ENCOUNTER 2018-12-26 06:52 | Emergency (ER) | payer OTHER ==
[~2018-12-26] VITALS: Ht 170.2 cm; Wt 81.7 kg
[2018-12-26] MEDS ORDERED: GABAPENTIN250 MG/5 M PER TUBE (07:19)
[2018-12-26] MEDS ORDERED: ZOLOFT25 MG PER TUBE (07:22)
[2018-12-26] MEDS ORDERED: OMEPRAZOLE 20 M20 M1 PER TUBE (07:23)
[2018-12-26] MEDS ORDERED: VESICARE 5 MG TA5 M1 PER TUBE (07:23)
[2018-12-26] MEDS ORDERED: CARAFATE1 GM PER TUBE (07:24)
[2018-12-26] MEDS ORDERED: SENNA PLUS TAB1 EACH PER TUBE (07:26)
[2018-12-26] MEDS ORDERED: KEPPRA100 MG/1 M PER TUBE (07:26)
[2018-12-26 08:48] LABS: URINE BLOOD 3+ (Negative); URINE CLARITY CLOUDY; URINE COLOR YELLOW; URINE GLUCOSE-RANDOM* NEGATIVE (Negative); URINE KETONES 1+ (Negative); URINE LEUKOCYTES-REFLEX 3+ (Negative); URINE NITRITE-REFLEX NEGATIVE (Negative); URINE PROTEIN (DIPSTICK) 3+ (Negative); URINE UROBILINOGEN 0.2 E.U./dl (0.2-1.0)
[2018-12-26 08:49] LABS: URINE BILIRUBIN NEGATIVE (Negative)
[2018-12-26 09:02] LABS: AMORPHOUS URATES Moderate /LPF (None Seen); BACTERIA-REFLEX >30 Many /HPF (None Seen); CASTS None Seen /LPF (None Seen); SQUAMOUS None Seen /LPF (0-3); URINE RBC >20 Many /HPF (0-2); URINE WBC-REFLEX >25 Many /HPF (0-5)
[2018-12-26 10:30] VITALS: BP 110/69
== END 2018-12-26 10:30 | disposition home or self-care (01) ==
LOC: ER 06:52
PROVIDERS: Emergency Medicine
DX: K94.23 Gastrostomy malfunction (principal); I10 Essential (primary) hypertension; Z86.2 Personal history of diseases of the blood and blood-forming organs and certain disorders involving the immune mechanism; Z87.442 Personal history of urinary calculi; Z90.49 Acquired absence of other specified parts of digestive tract; Z88.1 Allergy status to other antibiotic agents; Z88.7 Allergy status to serum and vaccine; Z88.0 Allergy status to penicillin; Z91.041 Radiographic dye allergy status

== ENCOUNTER 2019-06-27 07:17 | Emergency (ER) | payer OTHER ==
[~2019-06-27] VITALS: Ht 175.3 cm; Wt 88.5 kg
[~2019-06-27 07:17] MED LIST changes: +CARAFATE1 GM PER TUBE; +KEPPRA100 MG/1 M PER TUBE; +OMEPRAZOLE 20 M20 M1 PER TUBE; +SENNA PLUS TAB1 EACH PER TUBE; +VESICARE 5 MG TA5 M1 PER TUBE; +ZOLOFT25 MG PER TUBE
[2019-06-27 07:18] VITALS: BP 110/73
[2019-06-27] MEDS ORDERED: CENTANY AT1 EACH TOP (07:25)
[2019-06-27] MEDS ORDERED: OMEPRAZOLE 20 M20 M1 PO (07:26)
[2019-06-27] MEDS ORDERED: CARAFATE 1 GM TA1 G1 PO (07:26)
== END 2019-06-27 07:53 ==
LOC: ER 07:17
DX: K94.23 Gastrostomy malfunction (principal); I10 Essential (primary) hypertension; Z79.899 Other long term (current) drug therapy; Z88.1 Allergy status to other antibiotic agents; Z88.6 Allergy status to analgesic agent; Z88.7 Allergy status to serum and vaccine; Z88.0 Allergy status to penicillin; Z87.442 Personal history of urinary calculi; Y83.8 Other surgical procedures as the cause of abnormal reaction of the patient, or of later complication, without mention of misadventure at the time of the procedure; Y92.89 Other specified places as the place of occurrence of the external cause

== ENCOUNTER 2019-11-18 15:38 | Inpatient (IN) | payer OTHER ==
[~2019-11-18] VITALS: Ht 175.3 cm; Wt 76.0 kg
[~2019-11-18 15:38] MED LIST changes: +CARAFATE 1 GM TA1 G1 PO; +CENTANY AT1 EACH TOP; +OMEPRAZOLE 20 M20 M1 PO
[2019-11-18 15:39] VITALS: BP 85/56
[2019-11-18 17:30] LABS: ABSOLUTE NEUTROPHILS 11.8 thou/uL (1.4-8.2); BASOPHILS 0.1 % (0.0-2.0); EOSINOPHILS 0.2 % (0.0-3.0); HEMATOCRIT 24.7 % (42.0-52.0); HEMOGLOBIN 8.6 gm/dL (14.0-18.0); LYMPHOCYTES 4.9 % (24.0-44.0); MCH 27.6 pg (26.0-34.0); MCHC 34.9 g/dL (28.0-37.0); MCV 78.9 fL (80.0-100.0); MONOCYTES 4.2 % (1.0-8.0); PLATELET COUNT 302 thou/uL (150-400); POLYS 90.6 % (36.0-66.0); RBC 3.12 mil/uL (4.50-6.00); RDW 16.7 % (10.5-14.5)
[2019-11-18 17:46] LABS: ALBUMIN 2.3 g/dL (3.4-5.0); CALCIUM 9.1 mg/dL (8.5-10.1); CREATININE 4.7 mg/dL (0.7-1.3); POTASSIUM 5.1 mmol/L (3.5-5.1); TOTAL BILIRUBIN 0.4 mg/dL (0.2-1.0); TOTAL PROTEIN 7.7 g/dL (6.4-8.2)
[2019-11-18 18:25] LABS: URINE BILIRUBIN 2+ (Negative); URINE BLOOD 3+ (Negative); URINE GLUCOSE-RANDOM* NEGATIVE (Negative); URINE KETONES NEGATIVE (Negative); URINE LEUKOCYTES-REFLEX 3+ (Negative); URINE NITRITE-REFLEX POSITIVE (Negative); URINE PROTEIN (DIPSTICK) 3+ (Negative)
[2019-11-18 18:26] LABS: URINE CLARITY CLOUDY; URINE COLOR RED
[2019-11-18 18:27] LABS: ICTOTEST (BILI CONFIRMATORY) Negative (Negative)
[2019-11-18 18:32] LABS: BACTERIA-REFLEX >30 Many /HPF (None Seen); URINE RBC >20 Many /HPF (0-2); URINE WBC-REFLEX >25 Many /HPF (0-5)
[2019-11-18 18:33] LABS: CASTS None Seen /LPF (None Seen); CRYSTALS None Seen /LPF (None Seen); SQUAMOUS 0-3 Few /LPF (0-3)
[2019-11-18 18:44] LABS: ALBUMIN 1.9 g/dL (3.4-5.0); CALCIUM 7.8 mg/dL (8.5-10.1); CREATININE 4.1 mg/dL (0.7-1.3); PHOSPHORUS 6.8 mg/dL (2.5-4.9)
[2019-11-18 22:49] LABS: APTT 30.8 Seconds (24.5-32.8); FIBRINOGEN 590.8 mg/dL (210-360); PROTIME 9.9 Seconds (9.3-11.4)
[2019-11-18 22:59] LABS: ALBUMIN 2.4 g/dL (3.4-5.0); CALCIUM 8.1 mg/dL (8.5-10.1); CREATININE 3.5 mg/dL (0.7-1.3); PHOSPHORUS 6.4 mg/dL (2.5-4.9); POTASSIUM 3.4 mmol/L (3.5-5.1)
[2019-11-18 23:05] VITALS: BP 100/51
[2019-11-18 23:28] VITALS: BP 128/64
[2019-11-18 23:44] VITALS: BP 102/54
[2019-11-18 23:58] VITALS: BP 84/48
[2019-11-19] VITALS (75 sets, daily range): BP systolic 84–136; BP diastolic 44–86
[2019-11-19 06:15] LABS: ALBUMIN 2.4 g/dL (3.4-5.0); CALCIUM 8.5 mg/dL (8.5-10.1); CREATININE 3.2 mg/dL (0.7-1.3); PHOSPHORUS 6.8 mg/dL (2.5-4.9)
[2019-11-19 06:16] LABS: POTASSIUM 4.8 mmol/L (3.5-5.1)
[2019-11-19 07:38] LABS: ALBUMIN 2.6 g/dL (3.4-5.0); CALCIUM 9.2 mg/dL (8.5-10.1); CREATININE 3.8 mg/dL (0.7-1.3); PHOSPHORUS 6.7 mg/dL (2.5-4.9)
[2019-11-19 07:45] LABS: POTASSIUM 3.6 mmol/L (3.5-5.1)
--- NOTE | 2019-11-19 09:48 | NUR ---
WOUND CARE CONSULT; ASSESS SKIN/WOUND STATUS W/ ORE BUYER ULI, POOL AREA PEG TUBE SITE W/ ULCER PRESENT, SCANT BLEEDING, NO S/S INFECTION AT SITE, TUBE LEAKING AT TIMES, APPEARS RIM/BUMPER OF PEG TUBE MAY HAVE CAUSED ULCER, HEELS INTACT, OLD SCAR R LATERAL FOOT, NOT OPEN, BROUGHT PRAFO BOOTS TO HOSP, APPLIED BILAT FEET, NO SKIN BREAKDOWN SACRAL AREA RECOMMENDATIONS; NO STING SKIN PREP TO PEG TUBE SITE, COVER W/ OPTIFOAM AG DAILY AND PRN LEAKAGE, CONT PRESSURE RELIEF, TURNING, OFF LOADING, PRAFO BOOTS ON AT ALL TIMES ORE BUYER AWARE
--- NOTE | 2019-11-19 10:50 | NUR ---
chart review. unable to visit with anne sanabria nonverbal and he is resting. he came from [facility], he is ltc resident over there. up via rojelio lift, has reclining chair. peg (g/j) tube. he has to have assistance with all ald's has supra pubic call. cm called brother eleanor and left message requsted call back. dcp return to [facility] lt.
--- NOTE | 2019-11-19 12:18 | NUR ---
VASCULAR ACCESS CONSULTED FOR CVAD. ATTEMPTED RIJ BUT UNABLE TO PASS GUIDEWIRE. SO 2ND KIT USED AND LIJ WAS WIDELY PATENT WITH USG. 6FR TL POWER JACC 25CM INSERTED TO 3CM EXTERNAL. STAT CXR ORDERED. PT TOLERATED WELL.
--- NOTE | 2019-11-19 13:07 | NUR ---
CXR SHOWS IJ MALPOSITIONED. ATTEMPTED TO REPOSITION WITH POWER FLUSH 2ND CXR ORDERED
--- NOTE | 2019-11-19 16:59 | NUR ---
PT IS FROM [facility] FAXED CLINICAL UPDATE RECEIVED CONFIRMATION AND SPOKE WITH HELEN IN ADM SHE RECEIVED UPDATE.
--- NOTE | 2019-11-19 19:31 | NUR ---
RN HAS ASSUMED PT'S CARE AT 0700AM, PT'S EYES OPEN BY VOICE, BUT PT IS NO VERBAL AND PT DOES NOT FOLLOW COMMANDS, PT IS CONTINUING NOREPINEPHRINE IV DRIP AND TITRAED AT 27-28MCG /MIN TO PT'S MAP > 60, PT HAS R IJ CENTRAL LINE DONE AT IR, RN REPORTED TO NEXT SHIFT TO KEEP EYE ON PT. PT'S O2 HAS INCRESED TO 10 L/MIN/NC TO KEEP OESAT >92%.
[2019-11-19 23:59] LABS: ALBUMIN 2.3 g/dL (3.4-5.0); CALCIUM 9.8 mg/dL (8.5-10.1); CREATININE 3.6 mg/dL (0.7-1.3); TOTAL BILIRUBIN 0.5 mg/dL (0.2-1.0); TOTAL PROTEIN 7.8 g/dL (6.4-8.2)
[2019-11-20] VITALS (98 sets, daily range): BP systolic 78–132; BP diastolic 39–79
[2019-11-20] LABS: POTASSIUM 2.9 mmol/L (3.5-5.1)
--- NOTE | 2019-11-20 02:44 | NUR ---
CALLED LAB, URINE AND RESPIRATORY PANEL WERE WALKED TO LAB APPROXIMATELY 0045, BUT RESULTS STILL STATE NO RECIEVED. LAB STATES "THEY WILL HAVE TO LOOK."
[2019-11-20 04:07] LABS: GLYCOHEMOGLOBIN (HGB A1C) 6.3 % (4.8-5.6)
--- NOTE | 2019-11-20 06:24 | NUR ---
PATIENT NONVERBAL, DOES NOT FOLLOW COMMANDS OR INDICATE THAT HE UNDERSTANDS COMMANDS OR CONVERSATION. HR INCREASING UP TO 130'S THEN COMING BACK DOWN TO 80-110'S BPM. 02 NEEDS DECREASING, ON 2L SATTING 94%. LEVO TITRATED FOR MAP. PATIENT FREQUENTLY OBSERVED WITH EYES OPEN, DID NOT APPEAR TO REST VERY MUCH DURING SHIFT. LARGE AMT SEROUS/BROWN DRAINAGE COMING FROM AROUND PEG TUBE, DRESSING CHANGED X3. SUPRAPUBIC CATHETER LEAKING AROUND INSERTION SITE, CLEANSED FREQUENTLY AND PADS CHANGED X2, UNACCOUNTABLE OUTPUT. UOP IS CLOUDY/DARK/SEDIMENT/BLOOD TINGED. CLOSES MOUTH TIGHTLY AND MOVES HEAD BACK AND FORTH WITH ORAL CARES. OCCASSIONAL COUGH, DOES NOT ALLOW FOR ORAL SUCTIONING OR IS ABLE TO COUGH UP SPUTUM.
[2019-11-20 06:26] LABS: ABSOLUTE NEUTROPHILS 15.8 thou/uL (1.4-8.2); BASOPHILS 0.1 % (0.0-2.0); EOSINOPHILS 0.1 % (0.0-3.0); HEMATOCRIT 25.3 % (42.0-52.0); HEMOGLOBIN 8.7 gm/dL (14.0-18.0); LYMPHOCYTES 1.9 % (24.0-44.0); MCH 27.2 pg (26.0-34.0); MCHC 34.2 g/dL (28.0-37.0); MCV 79.6 fL (80.0-100.0); MONOCYTES 4.2 % (1.0-8.0); PLATELET COUNT 360 thou/uL (150-400); POLYS 93.7 % (36.0-66.0); RBC 3.18 mil/uL (4.50-6.00); RDW 16.8 % (10.5-14.5); WBC 16.9 thou/uL (4.0-11.0)
[2019-11-20 07:18] LABS: ALBUMIN 2.4 g/dL (3.4-5.0); CALCIUM 9.9 mg/dL (8.5-10.1); CREATININE 3.5 mg/dL (0.7-1.3); PHOSPHORUS 5.8 mg/dL (2.5-4.9); POTASSIUM 3.7 mmol/L (3.5-5.1)
--- NOTE | 2019-11-20 09:39 | NUR ---
ASSUMED CARE @ 0700 11/20/19, PT ASSESSMENTS AND VSS COMPLETE PER ICU PROTOCOL. SPEECH EVAL PERSONNEL AT BEDSIDE THIS AM, PT REFUSING.
--- NOTE | 2019-11-20 09:41 | NUR ---
Pt with chronic need for enteral nutrition. Rec jevity 1.5 at 55ml/hr. If renal prefers renal formula, then Nepro at 45ml/hr.
[2019-11-20 18:10] LABS: BE(vivo) 5.1 mmol/L (-2 to +3); HCO3 28.2 mmol/L (22.0-26.0); PCO2 35.6 mmHg (35.0-45.0); PO2 60.4 mmHg (80.0-100.0); pH 7.517 (7.360-7.450); sO2 93.5 % (92.0-98.0)
--- NOTE | 2019-11-20 22:55 | NUR ---
This RN spoke to Dr. Malcolm at 1999 regarding patients status. Pt started on D5 1/2 NS at 150mL/hr. Discussed period of patients HR jumping up to 140's then quickling dropping back down to 90's-low 100's. During these periods pt remains in normal sinus. Adequate urine output. Pt remains on Levophed for BP support. Pt currently on 60% O2 on Bipap. There was a period where patients oxygen sats dropped to the low 80's and during that time I jumped pt's FiO2 to 100%. Pt recovered and I am able to titrate back down too to 60% FiO2. Will continue to watch closely.
[2019-11-21] VITALS (90 sets, daily range): BP systolic 78–127; BP diastolic 31–64
--- NOTE | 2019-11-21 05:37 | NUR ---
Pt remained on Bipap throughout the night on 60% most of the night. Patient satting at 100% and vital signs stable. Fewer tachycardiac episodes as patient rests. Unable to wean off Levophed tonight but making progress. Pt tolerating tube feeds and having adequate urine output. Skin is intact and patient had a moderately sized loose stool this morning. Pt slowly progressing towards goals.
[2019-11-21 06:16] LABS: ALBUMIN 2.1 g/dL (3.4-5.0); CALCIUM 9.6 mg/dL (8.5-10.1); CREATININE 3.3 mg/dL (0.7-1.3); PHOSPHORUS 4.5 mg/dL (2.5-4.9)
[2019-11-21 06:40] LABS: POTASSIUM 2.6 mmol/L (3.5-5.1)
--- NOTE | 2019-11-21 09:27 | NUR ---
ORDERS RECEIVED FOR CLINICAL BEDSIDE SWALLOW EVALUATION. HOWEVER EVALUATION DEEMED INAPPROPRIATE AT THIS TIME PATIENT ON BIPAP - REQUIRED TO MAINTAIN O2 SATS. 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 SHOULD SKILLED ST SERVICES BE CLINICALLY INDICATED AT LATER DATE, PLEASE RECONSULT.
--- NOTE | 2019-11-21 09:53 | NUR ---
WOUND CARE NOTE; ASSESSED PEG TUBE SITE W/ CEILING INSTALLER FLORIDALMA, AND CRESENCIO ZAMORA GI, PER CRESENCIO STATES GI DR PADILLA THOUGHT TOO MANY GAUZE WAS UNDER BUMPER CAUSING TOO PRESSURE ON TUBE AND DISLODGING IT. WANTS AREA MORE OPEN TO AIR, AGREE W/ TRYING NO STING SKIN PREP TO PROTECT AREA AND THIN PIECE OF GAUZE UNDER BASE OF PEG BUMPER ONLY CEILING INSTALLER AWARE
--- NOTE | 2019-11-21 14:14 | NUR ---
chart review. am rounds. pt on bipap. he resting with eye closed, cm saw him from [facility], cm cont to wear own face mask and shield during am rounds. no anticipated dc needs. updates to [facility] early next week. cm spoke with this brother eleanor via phone call, no question. will cont following as needed for dc needs.
--- NOTE | 2019-11-21 15:58 | 2DMMODE ---
[facility] [address] 2 D/M-MODE ECHOCARDIOGRAM Name: MARIANELA CASTANEDA Room #: 243-P ADM IN M.R.#: [id number] Admission: 11/18/19 Attend Phys: Gordy Spear MD Discharge: Date of : 55 Report #: [id number] THIS REPORT FOR: cc: Yair Read MD, Ramilo MD Park, Jin S. MD ~ APPROVED REPORT Study performed: 11/21/2019 15:29:56 EXAM: Comprehensive 2D, Doppler, and color-flow Echocardiogram Patient Location: ICU Room #: 243 Status: routine BSA: 1.86 HR: 97 bpm BP: 109/53 mmHg Rhythm: Tachycardia Other Information Study Quality: Technically DifficultTechnically Limited Technically limited study due to patient on ventilator, inability to position patient, post operative dressings. Indications Hypotension Dyspnea Aortic Valve AoV Peak Jere.: 1.46 m/s AO Peak Gr.: 8.49 mmHg LVOT Max P.88 mmHg LVOT Max V: 1.31 m/s Pulmonary Valve PV Peak Jere.: 1.02 m/s PV Peak Gr.: 4.13 mmHg Left Ventricle The left ventricle is normal size. There is normal LV segmental wall motion. There is normal left ventricular wall thickness. Left ventricular systolic function is normal. The left ventricular ejection fraction is within the normal range. LVEF is 55-60%. This study is not technically sufficient to allow evaluation of the LV diastolic function. [facility] [place] [place] [address] 2 D/M-MODE ECHOCARDIOGRAM Name: MARIANELA CASTANEDA Room #: 243-P ADM IN M.R.#: [id number] Admission: 11/18/19 Attend Phys: Gordy Spear MD Discharge: Date of : 55 Report #: [id number] Right Ventricle The right ventricle is normal size. The right ventricular systolic function is normal. Atria The left atrium size is normal. The right atrium size is normal. Aortic Valve The aortic valve is not well visualized. Appears grossly normal. No aortic regurgitation is present. There is no aortic valvular stenosis. Mitral Valve The mitral valve is normal in structure. There is no mitral valve regurgitation noted. No evidence of mitral valve stenosis. Tricuspid Valve The tricuspid valve is normal in structure. There is no tricuspid valve regurgitation noted. Pulmonic Valve Pulmonic valve is not well visualized. There is no pulmonic valvular regurgitation. Great Vessels The aortic root is normal in size. The inferior vena cava is not well visualized. Pericardium There is no pericardial effusion. <Conclusion> The left ventricle is normal size. There is normal left ventricular wall thickness. Left ventricular systolic function is normal. The right ventricle is normal size. The left atrium size is normal. The aortic valve is not well visualized. Appears grossly normal. [facility] [place] [address] 2 D/M-MODE ECHOCARDIOGRAM Name: MARIANELA CASTANEDA Room #: 243-P ADM IN M.R.#: [id number] Admission: 11/18/19 Attend Phys: Gordy Spear MD Discharge: Date of : 55 Report #: [id number] There is no mitral valve regurgitation noted. There is no tricuspid valve regurgitation noted. <ELECTRONICALLY SIGNED> By: Oracio Johnson MD 11/21/19 1558 155 57 Oracio Johnson MD /INF
[2019-11-22] VITALS (59 sets, daily range): BP systolic 94–137; BP diastolic 44–88
[2019-11-22 05:52] LABS: BE(vivo) -1.8 mmol/L (-2 to +3); HCO3 21.5 mmol/L (22.0-26.0); PCO2 30.1 mmHg (35.0-45.0); PO2 181.6 mmHg (80.0-100.0); pH 7.472 (7.360-7.450); sO2 99.4 % (92.0-98.0)
[2019-11-22 05:55] LABS: MCH 27.6 pg (26.0-34.0); MCHC 33.6 g/dL (28.0-37.0); RBC 2.33 mil/uL (4.50-6.00); RDW 16.3 % (10.5-14.5); WBC 8.6 thou/uL (4.0-11.0)
[2019-11-22 06:02] LABS: HEMATOCRIT 19.1 % (42.0-52.0); HEMOGLOBIN 6.4 gm/dL (14.0-18.0)
[2019-11-22 06:09] LABS: ALBUMIN 1.8 g/dL (3.4-5.0); CALCIUM 8.7 mg/dL (8.5-10.1); CREATININE 2.5 mg/dL (0.7-1.3); PHOSPHORUS 2.7 mg/dL (2.5-4.9)
--- NOTE | 2019-11-22 07:20 | NUR ---
pt on bipap40% most of shift placed on 4l/nc after abgs were drawn, munoz and fecal management remain intact, peg tube intact no dressing or drainage, tf increased to 45 now at goal, fluids and levophed infusing in r ij, labs drawn and cv called on hh and no new orders received, will con't to monitor per ppoc.
--- NOTE | 2019-11-22 07:50 | NUR ---
ASSUMMED CARE AT 0700 FR0M THE NIGHT NURSE. LEVOPHED TAPPERED. POTASSIUM HUNG PER PROTOCOL FOR SERUM POTASSIUM OF 3.0
--- NOTE | 2019-11-22 12:00 | NUR ---
Dr Malcolm in to examine patient, orders noted, type and cross for unit of PRBC to lab. Continue to sophy Levophed. Will continue to monitor. Picking at O2 tubing and pulling it off with the left hand, Pinching staff when attempting to do oral care.
--- NOTE | 2019-11-22 19:00 | NUR ---
Patient is progressing towards outcome goals as evident by, Levophed weaned to 2mcg/min. Unit of PRBC's infused. O2 sAT 94% off oxygen as he is continually pulling it off. Dr Da Silva consulted concerning pallative care. notified that he is out of town. Dr. Malcolm updated. Patient's brother, Abrahan updated at 1515 today, questions and concerns addressed.
[2019-11-23] VITALS (49 sets, daily range): BP systolic 87–146; BP diastolic 48–89
[2019-11-23 04:33] LABS: HEMATOCRIT 22.7 % (42.0-52.0); HEMOGLOBIN 7.6 gm/dL (14.0-18.0); MCH 28.5 pg (26.0-34.0); MCHC 33.5 g/dL (28.0-37.0); MCV 84.9 fL (80.0-100.0); RBC 2.67 mil/uL (4.50-6.00); RDW 16.7 % (10.5-14.5); WBC 6.7 thou/uL (4.0-11.0)
[2019-11-23 04:44] LABS: ALBUMIN 1.9 g/dL (3.4-5.0); CALCIUM 8.8 mg/dL (8.5-10.1)
--- NOTE | 2019-11-23 06:00 | NUR ---
VSS REMAINS IN SINUS TACH. LEVOPHED GTT TITRATED OFF AT 0400. 2500 CC URINE OUTPUT THIS SHIFT. 250 CC BROWN LIQ STOOL FROM FMS. BATHED. REMAINS A DNR WILL CONT TO MONITOR
--- NOTE | 2019-11-23 13:53 | NUR ---
ASSUMED CARE @ 0700 11/23/19, PT ASSESSMENTS AND VSS COMPLETE PER ICU PROTOCOL. DR SANDOVAL AND DR NAGEL HERE THIS SHIFT TO ROUND, ORDERS RECIEVED AND EXECUTED. @ 0398 QUAN ZALDIVAR, A NURSE FROM [facility] CALLED FOR AN UPDATE ON THE PATIENT. RN VERFIES IDENTITY BY ASKING FOR SPECIFIC DETAILS OF THE PATIENT, THE NURSE WAS ABLE TO ANSWER ACCURATELY, UPDATE GIVEN.
[2019-11-24] VITALS (37 sets, daily range): BP systolic 36–157; BP diastolic 16–96
[2019-11-24 05:21] LABS: CALCIUM 9.1 mg/dL (8.5-10.1); CREATININE 1.6 mg/dL (0.7-1.3); PHOSPHORUS 2.7 mg/dL (2.5-4.9); POTASSIUM 3.6 mmol/L (3.5-5.1)
--- NOTE | 2019-11-24 06:00 | NUR ---
VSS REMAINS A MED SURG TELE OVERFLOW. O2 SAT 98 % ON ROOM AIR. 200 CC BROWN LIQ STOOL FMS 1500 CC UO THIS SHIFT. SLEPT AT INTERVALS TONIGHT. PT REMAINS A DNR. WILL CONT TO MONITOR
--- NOTE | 2019-11-24 08:11 | NUR ---
0725 Dr Miranda at bedside, new orders recieved.
--- NOTE | 2019-11-24 10:32 | NUR ---
hospitalist visited with anne webster via call about hospice. cm called and spoke with eleanor, live in [place] so any hospice will be fine, i spoke with jaylon at this morning. cm education on [facility], [facility], and [facility]. [facility] is fine if ok with jaylon per lyssa. will cont following as needed for dc needs.
--- NOTE | 2019-11-24 10:46 | NUR ---
WOUND CARE F/U; THIS PATIENT IS TO BE MOVED TO A MED SURG BED TODAY. THE PATIENT HAS COPIOUS DRAINAGE FROM THE SUPER PUBIC CATH SITE. ORDERS HAVE BEEN GIVEN TO NOT PUT ANYTHING UNDER THIS DEVICE ONLY ABOVE IT. ESCORIATION AROUND THE SUPERPUBIC CATH SITE. REDNESS DRAINAGE WITH RED WOUND BED TISSUE. RECOMMENDSTIONS; USE BARRIER CREAM AROUND AND UNDER THE CATH SITE DISTALLY TO INCLUDE THE GROIN AREAS, USE ABD'S DISTALLY TO CAPTURE THE URINE TID/PRN DISCUSSED WITH AZAM
--- NOTE | 2019-11-24 11:55 | NUR ---
FAXED REFERRAL TO [facility] SPOKE WITH KACEY IN INTAKE SHE RECEIVED REFERRAL AND WILL SPEAK WITH PT'S ON RICH AND WILL NEED NOTIFICATION OF WHEN PT DISCHARGING TO [facility].
[2019-11-24] MEDS ORDERED: MSL20MG/ML SUBLING (13:35)
[2019-11-25] VITALS: BP 93/54
--- NOTE | 2019-11-25 03:56 | NUR ---
Pt awake and alert.Assessment completed and documented. Noted low oxygen saturation at shift change on room air. Pt placed on BiPAP, lorazepan 1mg given to agitation. Peg site and Suprapubic site cleaned with cleaser, barrier cream applied, left open to air per orders.
--- NOTE | 2019-11-25 07:32 | NUR ---
PT TRANSFERED TO ROOM. 459, REPORT CALLED TO RECEIVING RN. PATIENT'S BROTHER-ALEXANDER/PAN NOTIFIED. NO CONCERNS FROM FAMILY AT THIS TIME.
--- NOTE | 2019-11-25 08:16 | NUR ---
cm faxed negative covid results to [facility].
[2019-11-25 10:17] VITALS: BP 91/59
--- NOTE | 2019-11-25 13:29 | NUR ---
PT DISCHARGING TODAY TO [facility] WITH [facility] FAXED DC ORDERS/SUMMARY SPOKE WITH ERNESTO AT [facility] SHE RECEIVED ORDERS AND COVID RESULT AND ARRANGED TRANSPORT BY [facility] FOR 0 TODAY. NOTIFIED PT'S BROTHER (BEATRICE) OF DC AND TIME OF TRANSPORT. UNIT NOTIFIED AND CHART COPY PER US. RECEIVED CONFIRMATION ON [facility] DC ORDERS. RN TO CALL REPORT TO [phone].
--- NOTE | 2019-11-25 13:39 | NUR ---
Transfer from ICU at 8:15am; transferrred to room safely. Sleepy but rousable, non-verbal. On O2 at 2lpm via nasal cannula. On MS, not on telemetry, no signs of chest pain, crushing sensation and heaviness noted. On nothing per orem- mouth care done; suctioned secretions. With PEG tube in place- surrounding skin excoriated- wound care seen and examined patient; GI informed as well; skin care done as ordered; kept area dry with towels- discharge photo taken and attached to chart. With suprapubic catheter in place- output measured and recorded accordingly. With fecal management in place as well- output measured and recorded accordingly. With single lumen midline at R upper arm- dressing C/D/I. With prafo boots on. Pt turned regularly on his sides. Assisted in ADLs. On comfort care, pt No code. As per CM, pt to be discharged back to facility with comfort care-pt's brother Abrahan informed re: transport time at 1530. To continue monitoring patient.
--- NOTE | 2019-11-25 14:17 | NUR ---
CARE TEAM INDICATED THAT PT IS MEDICALLY STABLE TO DISCHARGE TO [facility] THIS DAY WITH [facility]. PT'S BROTHER IS AWARE AND AGREEABLE. COVID TEST RESULTS FAXED. OUT OF HOSPITAL DNR TO BE SIGNED AND SENT WITH PT. CHART COPY MADE. ORDERS FAXED. REPORT CALLED TO . NO OTHER CM INTERVENTION INDICATED. CASE CLOSED.
[2019-11-25 14:54] VITALS: BP 92/57
== END 2019-11-25 17:47 | disposition hospice, home (50) | DRG 871 ==
LOC: ER 15:38 → EROBS 19:03 → ICU 19:03 → EROBS 19:03 → ICU 23:12 → 4W 11-25 07:59
PROVIDERS: Hospitalist; Internal Medicine Nephrology; Internal Medicine Pulmonary Disease; Nurse Practitioner Family; Physician Assistant; ADMIT Hospitalist; ATTEND Hospitalist
PROC: B548ZZA Ultrasonography of Superior Vena Cava, Guidance (ICD-10-PCS; 2019-11-19)
PROC: B54MZZA Ultrasonography of Right Upper Extremity Veins, Guidance (ICD-10-PCS; 2019-11-19)
PROC: 05HB33Z Insertion of Infusion Device into Right Basilic Vein, Percutaneous Approach (ICD-10-PCS; 2019-11-19)
PROC: 02HV33Z Insertion of Infusion Device into Superior Vena Cava, Percutaneous Approach (ICD-10-PCS; 2019-11-19)
PROC: 30233N1 Transfusion of Nonautologous Red Blood Cells into Peripheral Vein, Percutaneous Approach (ICD-10-PCS; 2019-11-22)
PROC: 5A09357 Assistance with Respiratory Ventilation, Less than 24 Consecutive Hours, Continuous Positive Airway Pressure (ICD-10-PCS; principal; 2019-11-25)
PROC: 5A09457 Assistance with Respiratory Ventilation, 24-96 Consecutive Hours, Continuous Positive Airway Pressure (ICD-10-PCS; principal; 2019-11-25)
DX: A41.9 Sepsis, unspecified organism (principal); G92 Toxic encephalopathy; R53.2 Functional quadriplegia; J96.01 Acute respiratory failure with hypoxia; R65.21 Severe sepsis with septic shock; J69.0 Pneumonitis due to inhalation of food and vomit; N17.9 Acute kidney failure, unspecified; E87.1 Hypo-osmolality and hyponatremia; I82.413 Acute embolism and thrombosis of femoral vein, bilateral; N39.0 Urinary tract infection, site not specified; Z16.39 Resistance to other specified antimicrobial drug; T85.518A Breakdown (mechanical) of other gastrointestinal prosthetic devices, implants and grafts, initial encounter; J98.11 Atelectasis; G65.0 Sequelae of Guillain-Barre syndrome; I95.9 Hypotension, unspecified; R13.10 Dysphagia, unspecified; N31.2 Flaccid neuropathic bladder, not elsewhere classified; E86.9 Volume depletion, unspecified; G40.909 Epilepsy, unspecified, not intractable, without status epilepticus; F32.9 Major depressive disorder, single episode, unspecified; F41.9 Anxiety disorder, unspecified; K21.9 Gastro-esophageal reflux disease without esophagitis; D50.0 Iron deficiency anemia secondary to blood loss (chronic); E87.6 Hypokalemia; I10 Essential (primary) hypertension; Y83.8 Other surgical procedures as the cause of abnormal reaction of the patient, or of later complication, without mention of misadventure at the time of the procedure; Z51.5 Encounter for palliative care; Z66 Do not resuscitate; Z90.49 Acquired absence of other specified parts of digestive tract; Z74.01 Bed confinement status; Y92.89 Other specified places as the place of occurrence of the external cause; Z79.899 Other long term (current) drug therapy; Z88.1 Allergy status to other antibiotic agents; Z88.5 Allergy status to narcotic agent; Z88.0 Allergy status to penicillin; Z88.7 Allergy status to serum and vaccine; Z88.8 Allergy status to other drugs, medicaments and biological substances; Z91.048 Other nonmedicinal substance allergy status; Z20.828 Contact with and (suspected) exposure to other viral communicable diseases
CPT/HCPCS: 10078; 10203; 10204